=== PATIENT | female | born 1980 | race Two or more races ===

== ENCOUNTER 2019-05-28 16:43 | Emergency (ER) | payer BC, OTHER ==
[~2019-05-28] VITALS: Ht 154.9 cm; Wt 80.3 kg
[2019-05-28 16:55] VITALS: BP 132/76
[2019-05-28 18:05] LABS: Urine Bacteria FEW /hpf (None Seen); Urine Blood Negative /uL (Negative); Urine Mucus FEW (None Seen); Urine WBC 2 /hpf (0 - 5)
[2019-05-28] MEDS ORDERED: cefTRIAXone SOD 1,000 MG VL IM ONE (19:00)
[2019-05-28] MEDS ORDERED: methylPREDNISolone SOD SUCC 125 MG/2 ML VL IM ONE (19:00)
== END 2019-05-28 19:38 | disposition home or self-care (01) ==
LOC: ER 16:43
DX: N39.0 Urinary tract infection, site not specified (principal); N83.201 Unspecified ovarian cyst, right side
CPT/HCPCS: 76856; 81001; 96372; 99284; J0696; J2930

== ENCOUNTER 2024-09-09 12:53 | Inpatient (IN) | payer BC, OTHER ==
[~2024-09-09] VITALS: Ht 160 cm; Wt 77.0 kg
[2024-09-09] VITALS (7 sets, daily range): BP systolic 145; BP diastolic 95; PULSE 114–130; RESP 16–20; TEMP 98.1; O2SAT 94–100
[2024-09-09] MEDS: IPRATROPIUM BROM 0.5 MG/2.5ML INH SOL HHN ONE (13:10)
[2024-09-09] MEDS: ALBUTEROL SULF 2.5 MG/0.5ML(0.5%) NEB SOLN HHN ONE (13:10)
[2024-09-09] MEDS: MAGNESIUM SULFATE 1GM/100ML 100 ML IV SCH (13:15)
--- NOTE | 2024-09-09 13:15 | ED.PDOC ---
History of Present Illness HPI Comments 43-year-old female who comes in with chief complaint of shortness a breath. The patient states that she was at work and approximately 1 hour later she started experiencing significant amount of shortness for breath. The patient denies any chest pain. She went to the local urgent care and was given dexamethasone 10 mg IM. The patient did try her inhaler but it did not help. When the paramedics arrived, the patient had an oxygen saturation of 98% on room air. The patient received albuterol and Atrovent in route with only mild relief. The patient denies any fever or chills. She does have a history of asthma and she does state that she smokes occasionally. Time Seen by MD: 12:57 Primary Care Provider: NONE Reviewed Notes: Nurses Notes, Physician President Notes, Medications, Allergies (No allergies to medications) Allergies: Coded Allergies: NO KNOWN ALLERGIES (Unverified , 10/26/13) Information Source: Patient, Emergency Med Personnel Mode of Arrival: EMS Severity: Moderate Timing: Hours Duration: Since onset Prehospital treatment: Beta-Agonist Tx, Ice Cream Freezer, IVF, Other (Dexamethasone IM) Associated signs and symptoms Shortness for breath with wheezing Past Medical History PAST MEDICAL HISTORY: Asthma Past Medical History (Other): Autoimmune disease Surgical History: Tonsillectomy Surgical History (Other): Right ovary removal, varicose vein surgery 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 Family History Family History: Reviewed,noncontributory to illness Social History Smoker: Cigarettes Alcohol: Denies ETOH Use Drugs: Denies Drug Use Lives In: Home Constitutional: denies: chills, diaphoresis, fatigue, fever, malaise, sweats, weakness, others EENTM: denies: blurred vision, double vision, ear bleeding, ear discharge, ear drainage, ear pain, ear ringing, eye pain, eye redness, hearing loss, mouth adilene n, mouth swelling, nasal discharge, nose bleeding, nose congestion, nose pain, photophobia, tearing, throat pain, throat swelling, voice changes, others Respiratory: reports: cough, shortness of breath; denies: hemoptysis, orthopnea, SOB at rest, SOB with excertion, stridor, wheezing, others Cardiovascular: denies: chest pain, dizzy spells, diaphoresis, Dyspnea on exertion, edema, irregular heart beat, left arm pain, lightheadedness, palpitations, PND, syncope, others Gastrointestinal: denies: abdomen distended, abdominal pain, blood streaked bowels, constipated, diarrhea, dysphagia, difficulty swallowing, hematemesis, melena, nausea, poor appetite, poor fluid intake, rectal bleeding, rectal pain, vomiting, others Genitourinary: denies: abnormal vagina bleeding, burning, dyspareunia, dysuria, flank pain, frequency, hematuria, incontinence, pain, , vagina discharge, urgency, others Neurological: denies: dizziness, fainting, headache, left sided numbness, left sided weakness, numbness, paresthesia, pre-existing deficit, right sided numbness, right sided weakness, seizure, speech problems, tingling, tremors, weakness, others Musculoskeletal: denies: back pain, gout, joint pain, joint swelling, muscle pain, muscle stiffness, neck pain, others Integumetry: denies: bruises, change in color, change in hair/nails, dryness, laceration, lesions, lumps, rash, wounds, others Allergic/Immunocompromised: denies: Difficulty Healing, Frequent Infections, Hives, Itching, others Hematologic/Lymphatic: denies: anemia, blood clots, easy bleeding, easy bruising, swollen glands, others Endocrine: denies: excessive hunger, excessive sweating, excessive thirst, excessive urination, flushing, intolerance to cold, intolerance to heat, unexplained weight gain, unexplained weight loss, others Psychiatric: denies: anxiety, bipolar disorder, depression, hopeless, panic disorder, schizophrenia, sleepless, suicidal, others Physical Exam General Appearance: Moderate Distress HEENT: Normal ENT Inspection, Pharynx Normal, TMs Normal Neck: Full Range of Motion, Non-Tender, Normal, Normal Inspection Respiratory: Accessory Muscle Use, Chest Non-Tender, Decreased Breath Sounds, Respiratory Distress, Wheezing Cardiovascular: No Edema, No JVD, No Murmur, No Gallop, Tachycardia Breast Exam: Deferred Gastrointestinal: No Organomegaly, Non Tender, No Pulsatile Mass, Normal Bowel Sounds, Soft Genitalia: Deferred Pelvic: Deferred Rectal: Deferred Extremities: No calf tenderness, Normal capillary refill, Normal inspection, Normal range of motion, Non-tender, No pedal edema Musculoskeletal : Apperance: Normal Neurologic: Alert, director internal audit II-XII nml as Tested, No Motor Deficits, Normal Affect, Normal Mood, No Sensory Deficits Cerebellar Function: Normal Reflexes: Normal Skin: Dry, Normal Color, Warm Lymphatic: No Adenopathy Was a procedure done? Was a procedure done?: No Differential Dx Considerations may include: Pneumonia, asthmatic, status asthmaticus X-Ray, Labs, Meds, VS Vital Signs Date Time Temp Pulse Resp B/P (MAP) Pulse Ox O2 Delivery O2 Flow Rate FiO2 09/09/24 13:33 97.7 79 16 117/76 (90) 97 97.7 Lab Test 09/09/24 13:30 Range/Units White Blood Count 10.2 4.4-10.8 10^3/uL Red Blood Count 4.49 4.0-5.20 10^6/uL Hemoglobin 14.0 12.2-16.2 g/dL Hematocrit 41.5 36.0-46.0 % Mean Corpuscular Volume 92.4 80.0-100.0 fL Mean Corpuscular Hemoglobin 31.2 28.0-32.0 pg Mean Corpuscular Hemoglobin Concent 33.8 32.0-36.0 g/dL Red Cell Distribution Width 13.7 11.8-14.3 % Platelet Count 338 140-450 10^3/uL Mean Platelet Volume 8.3 6.9-10.8 fL Neutrophils (%) (Auto) 72.0 37.0-80.0 % Lymphocytes (%) (Auto) 25.2 10.0-50.0 % Monocytes (%) (Auto) 2.3 0.0-12.0 % Eosinophils (%) (Auto) 0.2 0.0-7.0 % Basophils (%) (Auto) 0.3 0.0-2.0 % Neutrophils # (Auto) 7.3 1.6-8.6 10 ^3/uL Lymphocytes # (Auto) 2.6 0.4-5.4 10 ^3/uL Monocytes # (Auto) 0.2 0-1.3 10 ^3/uL Eosinophils # (Auto) 0 0-0.8 10 ^3/uL Basophils # (Auto) 0 0-0.2 10 ^3/uL Nucleated Red Blood Cells 0.0 % Sodium Level Pending Potassium Level Pending Chloride Level Pending Carbon Dioxide Level Pending Anion Gap Pending Blood Urea Nitrogen Pending Creatinine Pending Glomerular Filtration Rate Calc Pending BUN/Creatinine Ratio Pending Serum Glucose Pending Calcium Level Pending Current Medications Medications (Trade) Dose Ordered Sig/Yuly Route Start Time Stop Time Status Last Admin Methylprednisolone Sodium Succinate (Solu Medrol) 125 mg ONCE ONCE IV 09/09/24 13:00 09/09/24 13:01 DC 09/09/24 13:42 The patient was given a continuous breathing treatment of albuterol and Atrovent The patient was also given magnesium 2 g IV piggyback The patient was given Solu-Medrol 125 mg IV push The patient had a chest x-ray done which shows: No sign of any abnormalities The patient continues to have a significant amount of wheezing and shortness for breath The patient's CBC and chemistry panel are within normal limits The patient's diagnosis is acute status asthmaticus The patient was admitted Images Reviewed?: Images reviewed and evaluated by me Time of 1ST Reevaluation: 13:15 Reevaluation 1ST: Unchanged Patient Education/Counseling: Diagnosis, Treatment, Prognosis Family Education/Counseling: No Family Present Departure 1 Departure Time of Disposition: 13:58 Impression: Primary Impression: Acute respiratory failure Qualified Codes: J96.01 - Acute respiratory failure with hypoxia Additional Impression: Status asthmaticus Qualified Codes: J45.52 - Severe persistent asthma with status asthmaticus Disposition: ADMITTED INPATIENT Admit to: Tele Condition: Fair Critical Care Note Critical Care Time?: Yes (45 min-critical care time only) Stability Stability form required: Yes Unstable for transfer: Telemetry monitoring (Telemetry monitoring required), ED Physician Assesment (Clinical assesment) Heart Score Heart Score: Heart Score Response (Comments) Value History N/A 0 EKG N/A 0 Age N/A 0 Risk Factors N/A 0 Troponin N/A 0 Total 0 BLADE WHEELER MD Sep 09, 2024 13:15
--- NOTE | 2024-09-09 13:25 | DVH ---
CHEST RADIOGRAPH Indication: cough and sob Technique: Single frontal view of the chest was obtained Comparison: None FINDINGS: Lines and Tubes: None Lungs: No focal consolidation. Pleura: No effusion. No pneumothorax. Cardiomediastinal contours: Unremarkable Bones: No acute osseous abnormality. IMPRESSION: No acute cardiopulmonary disease.
[2024-09-09] MEDS: methylPREDNISolone SOD SUCC 125 MG/2 ML VL IV ONE (13:42)
[2024-09-09 13:45] LABS: Basophils # (auto) 0 10 ^3/uL (0-0.2); Basophils % (auto) 0.3 % (0.0-2.0); Eosinophils # (auto) 0 10 ^3/uL (0-0.8); Eosinophils % (auto) 0.2 % (0.0-7.0); Hematocrit 41.5 % (36.0-46.0); Lymphocytes # (auto) 2.6 10 ^3/uL (0.4-5.4); Lymphocytes % (auto) 25.2 % (10.0-50.0); Mean Corpuscular Hemoglobin 31.2 pg (28.0-32.0); Mean Corpuscular Hgb Conc. 33.8 g/dL (32.0-36.0); Mean Corpuscular Volume 92.4 fL (80.0-100.0); Monocytes # (auto) 0.2 10 ^3/uL (0-1.3); Monocytes % (auto) 2.3 % (0.0-12.0); Neutrophils # (auto) 7.3 10 ^3/uL (1.6-8.6); Platelet Count (auto) 338 10^3/uL (140-450); Red Blood Cells 4.49 10^6/uL (4.0-5.20); Red Cell Distribution Width 13.7 % (11.8-14.3); White Blood Cell 10.2 10^3/uL (4.4-10.8)
[2024-09-09 14:12] LABS: Chloride 106 mmol/L (98-107); Sodium 142 mmol/L (136-145)
[2024-09-09 14:13] LABS: Anion Gap 11 (5-15); Calcium 10.3 mg/dL (8.7-10.4); Carbon Dioxide 25 mmol/L (20-31)
[2024-09-09 14:18] LABS: BUN/Creatinine Ratio 14.6 (10.0-20.0); Blood Urea Nitrogen 12 mg/dL (9-23); Glucose 119 mg/dL (74-106); Potassium 3.4 mmol/L (3.5-5.1)
[2024-09-09] MEDS ORDERED: ACETAMINOPHEN 325 MG TAB PO PRN (19:00)
[2024-09-09] MEDS ORDERED: TEMAZEPAM 15 MG CAP PO PRN (19:00)
[2024-09-09] MEDS ORDERED: ONDANSETRON HCL 4 MG/2 ML VIAL IV PRN (19:00)
[2024-09-09] MEDS: IPRATROPIUM BROM 0.5 MG/2.5ML INH SOL ONE (19:13)
[2024-09-09] MEDS: ALBUTEROL SULF 2.5 MG/0.5ML(0.5%) NEB SOLN ONE (19:13)
[2024-09-09] MEDS: IPRATROPIUM BROM 0.5 MG/2.5ML INH SOL NEB PRN (20:41)
[2024-09-09] MEDS: ALBUTEROL SULF 2.5 MG/0.5ML(0.5%) NEB SOLN NEB PRN (20:41)
--- NOTE | 2024-09-09 20:57 | DVHHP2 ---
History of Present Illness Reason for Visit: Shortness of breath History of Present Illness 43-year-old female presents for evaluation of shortness for breath. Patient reports a one day history of severe shortness for breath. She does have a history of asthma she has been using her inhaler and nebulizer at home without relief of the symptoms. She states being unable to take deep breaths. Denies chest pain. No fever or chills. Past Medical History Asthma Past Surgical History Hysterectomy Family History Noncontributory Smoke: <1 pack per day ALCOHOL: none Drugs: None Lives: with Family Review of Systems Review of Systems Review of systems are currently addressed HPI Allergies: Coded Allergies: NO KNOWN ALLERGIES (Unverified , 10/26/13) Medications Current Medications Medications Dose Ordered Sig/Yuly Route Start Time Stop Time Status Last Admin Dose Admin Albuterol 2.5 mg Q6HPRN PRN NEB 09/09/24 19:00 09/09/24 20:41 2.5 MG Ipratropium [place] 0.5 mg Q6HPRN PRN NEB 09/09/24 19:00 09/09/24 20:41 0.5 MG Methylprednisolone Sodium Succinate 40 mg BID IV 09/09/24 22:00 Temazepam 15 mg QHSP PRN PO 09/09/24 19:00 Ondansetron HCl 4 mg Q4HP PRN IV 09/09/24 19:00 Acetaminophen 650 mg Q6HP PRN PO 09/09/24 19:00 Azithromycin 500 mg DAILY PO 09/10/24 10:00 Exam Vital Signs Vital Signs Date Time Temp Pulse Resp B/P (MAP) Pulse Ox O2 Delivery O2 Flow Rate FiO2 09/09/24 20:42 124 20 99 09/09/24 20:35 Room Air 0.0 09/09/24 20:35 21 09/09/24 20:27 98.0 138/84 (102) 98.0 Exam Gen: 43-year-old female in mild distress Skin: Warm, dry, normal color and texture, no rash. HEENT: Normocephalic atraumatic, mucous membranes moist and pink. Neck: Cervical and supraclavicular nodes normal without enlargement, trachea is midline, thyroid gland is normal without masses. Pulmonary: Inspiratory/expiratory wheeze Cardiac: Sinus tachycardia Abdomen: Soft, nontender, nondistended, bowel sounds present all 4 quadrants, no guarding, no rigidity, no organomegaly. Extremities: No cyanosis, clubbing, no edema Neuro: Cranial nerves II through XII grossly intact, normal affect and speech, no focal motor deficits. Labs/Xrays ORDERING PHYSICIAN: BLADE WHEELER MD PROCEDURE(s): CXRP - CHEST PORTABLE REASON: cough and sob ORDER NUMBER(s): [id number], ACCESSION NUMBER(s): [id number] CHEST RADIOGRAPH Indication: cough and sob Technique: Single frontal view of the chest was obtained Comparison: None FINDINGS: Lines and Tubes: None Lungs: No focal consolidation. Pleura: No effusion. No pneumothorax. Cardiomediastinal contours: Unremarkable Bones: No acute osseous abnormality. IMPRESSION: No acute cardiopulmonary disease. Labs Test 09/09/24 13:30 Range/Units White Blood Count 10.2 4.4-10.8 10^3/uL Red Blood Count 4.49 4.0-5.20 10^6/uL Hemoglobin 14.0 12.2-16.2 g/dL Hematocrit 41.5 36.0-46.0 % Mean Corpuscular Volume 92.4 80.0-100.0 fL Mean Corpuscular Hemoglobin 31.2 28.0-32.0 pg Mean Corpuscular Hemoglobin Concent 33.8 32.0-36.0 g/dL Red Cell Distribution Width 13.7 11.8-14.3 % Platelet Count 338 140-450 10^3/uL Mean Platelet Volume 8.3 6.9-10.8 fL Neutrophils (%) (Auto) 72.0 37.0-80.0 % Lymphocytes (%) (Auto) 25.2 10.0-50.0 % Monocytes (%) (Auto) 2.3 0.0-12.0 % Eosinophils (%) (Auto) 0.2 0.0-7.0 % Basophils (%) (Auto) 0.3 0.0-2.0 % Neutrophils # (Auto) 7.3 1.6-8.6 10 ^3/uL Lymphocytes # (Auto) 2.6 0.4-5.4 10 ^3/uL Monocytes # (Auto) 0.2 0-1.3 10 ^3/uL Eosinophils # (Auto) 0 0-0.8 10 ^3/uL Basophils # (Auto) 0 0-0.2 10 ^3/uL Nucleated Red Blood Cells 0.0 % Sodium Level 142 136-145 mmol/L Potassium Level 3.4 L 3.5-5.1 mmol/L Chloride Level 106 98-107 mmol/L Carbon Dioxide Level 25 20-31 mmol/L Anion Gap 11 5-15 Blood Urea Nitrogen 12 9-23 mg/dL Creatinine 0.82 0.550-1.02 mg/dL Glomerular Filtration Rate Calc 92 >90 mL/min BUN/Creatinine Ratio 14.6 10.0-20.0 Serum Glucose 119 H 74-106 mg/dL Calcium Level 10.3 8.7-10.4 mg/dL Assessment/Plan Assessment/Plan Assessment Acute on chronic respiratory failure Status asthmaticus Plan Admit the patient to Med surge to the hospitalist Med nebs Azithromycin Dary/influenza pending Continue treatment per orders. Plan discussed with: Patient My Orders Orders - DOROTHY NATARAJAN Procedure Category Date Status Time Albuterol Medneb PHA 09/09/24 In Process (Ventolin Medneb) 19:00 Ipratropium Medneb PHA 09/09/24 In Process (Atrovent Medneb) 19:00 Methylprednisolone PHA 09/09/24 In Process Sod Succ (Solu Medrol 22:00 Basic Metabolic Panel LAB 09/10/24 Verified 04:00 Admit ADMIT 09/09/24 Transmitted 18:49 Temazepam (Restoril) PHA 09/09/24 In Process 19:00 Ondansetron Hcl PHA 09/09/24 In Process (Zofran) 19:00 Condition: Stable LUZ ELENA 09/09/24 In Process 18:49 Acetaminophen Tablet PHA 09/09/24 In Process (Tylenol Tablet) 19:00 Bedrest With Bathroom LUZ ELENA 09/09/24 In Process Privileg 18:49 Regular Diet DIET 09/10/24 Transmitted Breakfast Azithromycin Tablet PHA 09/10/24 In Process (Zithromax Tablet) 10:00 Guaifenesin-Codeine PHA 09/09/24 Verified Liquid (Robitussin/C 21:00 Guaifenesin-Codeine PHA 09/09/24 Verified Liquid (Robitussin/C 21:00 D-Dimer LAB 09/09/24 Verified 20:51 Date of Service: Sep 09, 2024 Billing Provider: DOROTHY NATARAJAN Common Visit Codes: [id number] INP/OBS CARE (HIGH) DOROTHY NATARAJAN Sep 09, 2024 20:57
[2024-09-09] MEDS ORDERED: guaiFENesin-CODEINE Liq 5 ML UD PO PRN (21:00)
[2024-09-09] MEDS ORDERED: guaiFENesin-CODEINE Liq 5 ML UD PO ONE (21:00)
[2024-09-09 21:29] LABS: Urine Bacteria None Seen /hpf (None Seen)
[2024-09-09 21:35] LABS: Urine Blood TRACE /uL (Negative); Urine Clarity Clear (Clear); Urine Color Colorless (Yellow); Urine Protein, UAD Negative (Negative); Urine Squamous Epithelial Cell FEW /hpf (<5); Urine Urobilinogen Normal (Negative); Urine WBC 1 /HPF (0-5)
[2024-09-09] MEDS: AZITHROMYCIN 250 MG TAB PO ONE (21:53)
[2024-09-09] MEDS: methylPREDNISolone SOD SUCC 40 MG/ML VL IV SCH (21:54)
[2024-09-09] MEDS: LEVALBUTEROL HCL 1.25 MG/3 ML NEB ONE (23:50)
[2024-09-09] MEDS: IPRATROPIUM BROM 0.5 MG/2.5ML INH SOL NEB SCH (23:50)
[2024-09-10] VITALS (10 sets, daily range): BP systolic 130–131; BP diastolic 70–80; PULSE 98–131; RESP 16–20; TEMP 98–98.3; O2SAT 94–100
[2024-09-10] MEDS: LEVALBUTEROL HCL 1.25 MG/3 ML NEB NEB SCH
[2024-09-10 07:00] LABS: Rapid Influenza A Negative (Negative); Rapid Influenza B Negative (Negative)
[2024-09-10 07:01] LABS: COVID19 ANTIGEN SOFIA FIA NEGATIVE (NEGATIVE)
[2024-09-10 07:18] LABS: Potassium 4.6 mmol/L (3.5-5.1); Sodium 140 mmol/L (136-145)
[2024-09-10 07:19] LABS: Anion Gap 7 (5-15); Carbon Dioxide 25 mmol/L (20-31); Chloride 108 mmol/L (98-107)
[2024-09-10 07:24] LABS: BUN/Creatinine Ratio 11.3 (10.0-20.0)
[2024-09-10 07:29] LABS: Blood Urea Nitrogen 8 mg/dL (9-23); Calcium 10.4 mg/dL (8.7-10.4); Glucose 134 mg/dL (74-106)
[2024-09-10] MEDS: AZITHROMYCIN 250 MG TAB PO SCH (10:20)
[2024-09-10] MEDS ORDERED: PRED10TA PO (15:07)
[2024-09-10] MEDS ORDERED: LEVAAER IN (15:07)
--- NOTE | 2024-09-10 15:34 | DVHDS2 ---
Discharge Summary Date of Admission Sep 09, 2024 at 18:49 Date of Discharge: Sep 10, 2024 Admitting Diagnosis Acute on chronic respiratory failure Labs/Diagnostic Data: Laboratory Results Test 09/10/24 06:50 09/10/24 06:00 09/09/24 21:10 09/09/24 20:58 Sodium Level 140 mmol/L (136-145) Potassium Level 4.6 mmol/L (3.5-5.1) Chloride Level 108 mmol/L (98-107) Carbon Dioxide Level 25 mmol/L (20-31) Anion Gap 7 (5-15) Blood Urea Nitrogen 8 mg/dL (9-23) Creatinine 0.71 mg/dL (0.550-1.02) Glomerular Filtration Rate Calc 109 mL/min (>90) BUN/Creatinine Ratio 11.3 (10.0-20.0) Serum Glucose 134 mg/dL (74-106) Calcium Level 10.4 mg/dL (8.7-10.4) Influenza Type A Antigen Negative (Negative) Influenza Type B Antigen Negative (Negative) SARS-CoV-2 Antigen (Rapid) Negative (NEGATIVE) Urine Color Colorless (Yellow) Urine Clarity Clear (Clear) Urine pH 5.0 (5.0-9.0) Urine Specific [place] 1.010 (1.001-1.035) Urine Protein Negative (Negative) Urine Ketones 1+ (Negative) Urine Blood Trace /uL (Negative) Urine Nitrite Negative (Negative) Urine Bilirubin Negative (Negative) Urine Urobilinogen Normal mg/dL (Negative) Urine Leukocyte Esterase Negative /uL (Negative) Urine RBC <1 /hpf (0 - 4) Urine Microscopic WBC 1 /HPF (0-5) Urine Squamous Epithelial Cells Few /hpf (<5) Urine Bacteria None seen /hpf (None Seen) Urine Glucose Normal mg/dL (Normal) D-Dimer, Quantitative 0.30 mg/L FEU (0.0-0.49) Test 09/09/24 13:30 White Blood Count 10.2 10^3/uL (4.4-10.8) Red Blood Count 4.49 10^6/uL (4.0-5.20) Hemoglobin 14.0 g/dL (12.2-16.2) Hematocrit 41.5 % (36.0-46.0) Mean Corpuscular Volume 92.4 fL (80.0-100.0) Mean Corpuscular Hemoglobin 31.2 pg (28.0-32.0) Mean Corpuscular Hemoglobin Concent 33.8 g/dL (32.0-36.0) Red Cell Distribution Width 13.7 % (11.8-14.3) Platelet Count 338 10^3/uL (140-450) Mean Platelet Volume 8.3 fL (6.9-10.8) Neutrophils (%) (Auto) 72.0 % (37.0-80.0) Lymphocytes (%) (Auto) 25.2 % (10.0-50.0) Monocytes (%) (Auto) 2.3 % (0.0-12.0) Eosinophils (%) (Auto) 0.2 % (0.0-7.0) Basophils (%) (Auto) 0.3 % (0.0-2.0) Neutrophils # (Auto) 7.3 10 ^3/uL (1.6-8.6) Lymphocytes # (Auto) 2.6 10 ^3/uL (0.4-5.4) Monocytes # (Auto) 0.2 10 ^3/uL (0-1.3) Eosinophils # (Auto) 0 10 ^3/uL (0-0.8) Basophils # (Auto) 0 10 ^3/uL (0-0.2) Nucleated Red Blood Cells 0.0 % Other Laboratory Tests 09/10/24 06:50 09/09/24 13:30 Brief Hx & Hospital Course: History of Present Illness 43-year-old female presents for evaluation of shortness for breath. Patient reports a one day history of severe shortness for breath. She does have a history of asthma she has been using her inhaler and nebulizer at home without relief of the symptoms. She states being unable to take deep breaths. Denies chest pain. No fever or chills. Course of hospitalization: Patient was treated with IV Solu-Medrol, bronchodilators, antibiotic therapy, IV hydration. Re-evaluation of the patient reveals that she was no longer wheezing, ambulating without difficulty or O2 supplementation. Patient was requesting to be discharged home. She will be provided a prescription of [id number] mcg two puffs every 6 hours as needed for asthma exacerbation or shortness of breath. She will also be provided a prednisone tapering dose. The patient will follow up with her PCP in 1-2 weeks, in addition to obtaining referral to a estate conservator for better management of her underlying asthma. Both her and her are agreeable with discharge plan. All questions answered. Physical exam General: Alert and Oriented x3. No acute distress. Well-nourished. Eyes: EOMI. Anicteric. HENT: Moist mucous membranes. Lungs: Clear to auscultation bilaterally. No accessory muscle use. Cardiovascular: Regular rate and rhythm. No murmur. No JVD. Abdomen: Soft, non-tender and non-distended. No palpable masses. Extremities: No edema. Non-tender. Skin: No rashes or lesions. Warm. Neurologic: No focal neurological deficits. CN II-XII grossly intact, but not individually tested. Psychiatric: Cooperative. Appropriate mood and affect. Critical care time spent with patient discussing and formulating plan of care: 40 minutes. This does not include time spent performing procedures. This medical document was created using an electronic medical record system with [employer] dictation system. Although this document has been carefully reviewed, there may still be some phonetic and typographical errors. These areas are purely typographical due to imperfections of the software programs, and do not reflect any compromise in the patient's medical care. Condition at Discharge: Fair Final Diagnosis/Problems List STATUS ASTHMATICUS Secondary Diagnosis: Asthma Obesity Sirs without organ dysfunction Discharge Disposition: Home Discharge Instruct/Medications Diet: Regular Activity: No Restrictions, As Tolerated Follow Up/Referral: Follow up with PCP in 1-2 weeks Medications: Prednisone tapering dose [id number] mcg two puffs q.6 hours as needed for dyspnea 36 Discharge Statement: "Patient was advised to return to the ER or call 911 if any headaches, dizziness, shortness of breath, chest pain, abdominal pain, bleeding, fevers, or worsening of medical condition. Patient was counseled about treatment plan, medications, possible side effects, patientverbalized understanding. All questions were answered to the best of my ability. This discharge took greater then 30 minutes in planning, reviewing documentation, counseling the patient, and discussing with other team members." ASSESSMENT ASSESSMENT Assessment STATUS ASTHMATICUS Date of Service: Sep 10, 2024 Billing Provider: JADE BOLDEN NP Common Visit Codes: 15926-NNA/OBS DISCH DAY >30min JADE BOLDEN NP Sep 10, 2024 15:34
== END 2024-09-10 15:20 | disposition home or self-care (01) | DRG 189 ==
LOC: EDBD 12:53 → ER 12:53 → OVERFLOW 18:49
PROVIDERS: ADMIT Nurse Practitioner Acute Care; ATTEND Nurse Practitioner Acute Care
DX: J96.20 Acute and chronic respiratory failure, unspecified whether with hypoxia or hypercapnia (principal); R65.10 Systemic inflammatory response syndrome (SIRS) of non-infectious origin without acute organ dysfunction; J45.902 Unspecified asthma with status asthmaticus; Z20.822 Contact with and (suspected) exposure to COVID-19; F17.210 Nicotine dependence, cigarettes, uncomplicated; E66.9 Obesity, unspecified; Z90.710 Acquired absence of both cervix and uterus; Z68.30 Body mass index [BMI] 30.0-30.9, adult
CPT/HCPCS: 36415; 71045; 80048; 81001; 85025; 85379; 87426; 87804; 94640; 94644; 96365; 96375; 99291; G0378